=== PATIENT | male | born 1970 | race Caucasian/White ===

== ENCOUNTER → 2023-08-11 | Outpatient (CLI) | payer OTHER, SELFPAY ==
--- NOTE | 2023-08-11 15:11 | MRI_ITS ---
STUDY: MRI BRAIN WITH AND WITHOUT CONTRAST REASON FOR EXAM: Male, 53 years old. IAC LT EAR HEARING LOSS TECHNIQUE: Standardized multiplanar fat and water weighted pulse sequences were obtained. IV Yes YES was administered for the contrast portion of the examination. COMPARISON: None. FINDINGS: Normal size of the ventricles and extra-axial spaces for the patient''s age. Normal white matter tracts of the supratentorial brain. Normal bilateral basal ganglia. Normal thalami. There is no extra-axial fluid accumulation. Normal flow voids within the major intracranial circulation suggesting patency by spin echo criteria. Normal venous enhancement. There is no enhancing intra-axial or extra-axial abnormality. Normal sella turcica, pituitary gland, infundibular stalk, optic chiasm and hypothalamus. Normal tectal plate and pineal gland. Normal midbrain, elan and medulla. Normal cerebellum. Normal basal cisterns. Normal bilateral temporal bones. Normal bilateral internal auditory canals. No demonstrated orbital abnormality, within the constraints of a routine brain study. Mild polypoid mucosal thickening in the left maxillary sinus and more severe complex disease in the left sphenoid sinus. Normal calvarium and skull base. Normal visualized soft tissue structures. Normal visualized upper cervical spine. MRI/Brain W/WO Contrast IMPRESSION: Normal unenhanced and enhanced MRI of the brain . No evidence for acoustic or vestibular schwannoma. Mild left maxillary sinusitis and more severe complex sinus disease in the left sphenoid sinus possibly fungal. Neoplasm not entirely excluded. Clinical correlation recommended Electronically Signed: Dale Cohn MD at 18:05 EST ,
--- OUTSIDE RECORDS SUMMARY | 2023-08-11 15:14 | XMS RPT_ITS | CCD ---
Demographics Address [address] [place] [address] Preferred Language en Marital Status Single Congregational Affiliation Unknown Race White Ethnic Group Not or Lati no Author Name Unknown Address [address] [place] [address] Organization [facility] Care Team Providers Care Russet Repairer Name Role Phone Pcp, No Primary Care Provider Unavailabl e Medications Completed/Discontinued Medications Medication Drug Class(es) Dates Sig (Normalized) Sig (Original) Esomeprazole (1 source) Proton Pump Inhibitor esomeprazo le magnesium (NEXIUM ORAL) Take by mouth. 0 Active Problems Problem Classification Problem Date Documented Da te Episodic/Chronic Nausea and vomiting (1 source) Diarrhea and vomiting; Translations: [Vomiting, unspecified] Episodic Other upper respiratory infections (1 source) Upper respiratory infection; Translations: [Acute upper respiratory infection, unspecified] Episodic Otitis media and related conditions (1 source) Dysfunction of bilateral eustachian tubes; Translations: [Other specified disorders of Eustachian tube, bilateral] Episodic Results Test Name Value Interpretation Reference Range Facil ity Vital Signs Date Time Vital Sign Value Performing Clinician Checo bowens 08-02-2022 10:56-0500 Body temperature 97.5 [degF] Sudhir Mayberry APRN.CNP Work Phone: [facility] 08-02-2022 10:56-0500 Body weight 115.67 kg Sudhir Mayberry APRN.CNP Work Phone: [facility] 08-02-2022 10:56-0500 Diastolic blood pressure 80 mm[Hg] Sudhir Mayberry APRN.CNP Work Phone: [facility] 08-02-2022 10:56-0500 Heart rate 104 /min Sudhir Mayberry APRN.CNP Work Phone: [facility] 08-02-2022 10:56-0500 Respiratory rate 16 /min Sudhir Mayberry APRN.CNP Work Phone: [facility] 08-02-2022 10:56-0500 SaO2% (BldA) [Mass fraction] 96 % Sudhir Mayberry APRN.CNP Work Phone: [facility] 08-02-2022 10:56-0500 Systolic blood pressure 126 mm[Hg] Sudhir Mayberry APRN.CNP Work Phone: [facility] Encounters Encounter Date Encounter Type Care Provider Facility Start: 08-02-2022 End: 08-02-2022 ambulatory Facility:[facility] Start: 08-02-2022 End: 08-02-2022 Patient encounter procedure Sudhir Mayberry APRN.CNP Work Phone: [facility] Plan of Treatment Date Care Activity Detail Author Start: 04-07-2022 Influenza vaccination INFLUENZA (#1) [facility] Start: 08-07-2021 DEPRESSION ASSESSMENT DEPRESSION ASS ESSMENT [facility] Start: 2019 SHINGRIX VACCINE (1 of 2) SHINGRIX V ACCINE (1 of 2) [facility] Start: 2014 COLOGUARD (FIT-DNA) COLOGUARD (FIT-D NA) [facility] Start: 2014 Colonoscopy COLONOSCOPY [facility] Start: 2014 COLORECTAL CANCER SCREENING COLORECTAL CANCER SCREENING [facility] Start: [address] COLONOGRAPHY [facility] Start: 2014 DIABETES SCREEN DIABETES SCREEN [facility] Start: 2014 FECAL OCCULT BLOOD FECAL OCCULT BLOO D [facility] Start: 2014 SIGMOIDOSCOPY SIGMOIDOSCOPY [facility] Start: 2004 LIPID SCREEN LIPID SCREEN [facility] Start: 1988 Urine microalbumin profile DTAP,TDAP ,TD (1 - Tdap) [facility] Start: 1987 HEPATITIS C SCREENING HEPATITIS C SC REENING [facility] Start: 1987 HIV SCREENING HIV SCREENING [facility] Start: 1969 COVID-19 VACCINE (#1) COVID-19 VACCI NE (#1) [facility] Start: 1969 HEPATITIS B (1 of 3 - 3-dose series) HEPATITIS B (1 of 3 - 3-dose series) [facility] Payers Date Payer Category Payer Unknown [id number] 2021 Unknown MMO MMO [employer] [id number] 2021-Present [phone] [address] [place] [address] PPO [id number] Social History Date Type Detail Facility Start: 08-02-2022 Tobacco smoking status NHIS Never smoked tobacco [facility] Work Phone: Start: 08-02-2022 Tobacco use and exposure Smokeless tobacco non-user [facility] Work Phone: Start: 1970 Sex Assigned At Not on file [facility] NEGATED: Highlighted rowStart: NINF History of tobacco use Passive smoker [facility] Work Phone: Progress note 08-02-2022 Note Date & Type Note Facility 08-02-2022 Note HNO ID: [id number] Author: Sudhir Mayberry APRN.[facility] Service: ? Author Type: Nurse Practitioner Type: Progress Notes Filed: 08/02/2022 11:52 AM Note Text: Subjective HPI HPI Pamela Brown is a 52 year old male who presents today for CC of vomiting/diarrhea. This started 1 day ago. Has tried pepto for relief. Symptoms are worsened by nothing. Risk factors others with similar symptoms after eating pizza other day. Denies blood in stool/vomit. Nasal congestion for 2-3 weeks/improving, now having ear fullness/buzzing, decrease in hearing. .Patient presents with: Sinus Problem: sinus pressure, drainage, ear pain x off and on x 2-3 weeks, gi upset diarrhea, vomiting x this am No past medical history on file. No past surgical history on file. ALLERGIES Patient has no known allergies. MEDICATIONS esomeprazole magnesium (NEXIUM ORAL) Take by mouth. No family history on file. Social History Tobacco Use Smoking status: Never Passive exposure: Never Smokeless tobacco: Never ROS Objective Blood pressure 126/80, pulse 104, temperature 36.4 ?C (97.5 ?F), resp. rate 16, weight 115.7 kg (255 lb), SpO2 96 %. Physical Exam Constitutional: General: He is not in acute distress. Appearance: He is not toxic-appearing or diaphoretic. HENT: Head: Normocephalic and atraumatic. Right Ear: Hearing, ear canal and external ear normal. A middle ear effusion (clear) is present. Left Ear: Hearing, ear canal and external ear normal. A middle ear effusion (clear) is present. Nose: Nose normal. Eyes: General: Lids are normal. No scleral icterus. Right eye: No discharge. Left eye: No discharge. Conjunctiva/sclera: Conjunctivae normal. Pupils: Pupils are equal, round, and reactive to light. Neck: Trachea: Trachea normal. Cardiovascular: Rate and Rhythm: Normal rate and regular rhythm. Heart sounds: Normal heart sounds. Pulmonary: Effort: Pulmonary effort is normal. Breath sounds: Normal breath sounds. Abdominal: General: Bowel sounds are normal. Palpations: There is no hepatomegaly or splenomegaly. Tenderness: There is no abdominal tenderness. Musculoskeletal: Cervical back: Normal range of motion and neck supple. Lymphadenopathy: Cervical: No cervical adenopathy. Right cervical: No superficial cervical adenopathy. Left cervical: No superficial cervical adenopathy. Skin: Findings: No rash. Neurological: Mental Status: He is alert and oriented to person, place, and time. ASSESSMENT/PLAN: 1. Vomiting and diarrhea - ICD9: 787.03, 787.91, ICD10: R11.10, R19.7 (primary diagnosis) Viral vs food born illness Push fluids Otc management discussed Urgent f/u for worsening s/s. 2. ETD (Eustachian tube dysfunction), bilateral - ICD9: 381.81, ICD10: H69.83 -use medication as prescribed -follow up if symptoms persist, worsen, change - FLUTICASONE PROPIONATE 50 MCG/ACTUATION NASAL SPRAY,SUSPENSION 3. Protracted URI - ICD9: 465.9, ICD10: J06.9 - Discussed viral etiology and rationale for treatment. - Symptomatic treatment with prn analgesia - Supportive care with fluids and rest - Follow up in 3-5 days if symptoms persist or sooner if worsening of symptoms Sudhir Mayberry APRN.[facility] History of Present illness Narrative 08-02-2022 Sudhir Mayberry APRN.[facility] - 08/02/2022 11:11 AM EST Note Date & Type Note Facility 08-02-2022 History of Presen t illness Narrative Subjective HPI HPI Pamela Brown is a 52 year old male who presents today for CC of vomiting/diarrhea. This started 1 day ago. Has tried pepto for relief. Symptoms are worsened by nothing. Risk factors others with similar symptoms after eating pizza other day. Denies blood in stool/vomit. Nasal congestion for 2-3 weeks/improving, now having ear fullness/buzzing, decrease in hearing. .Patient presents with: Sinus Problem: sinus pressure, drainage, ear pain x off and on x 2-3 weeks, gi upset diarrhea, vomiting x this am No past medical history on file. No past surgical history on file. ALLERGIES Patient has no known allergies. MEDICATIONS esomeprazole magnesium (NEXIUM ORAL) Take by mouth. No family history on file. Social History Tobacco Use Smoking status: Never Passive exposure: Never Smokeless tobacco: Never ROS Objective Blood pressure 126/80, pulse 104, temperature 36.4 C (97.5 F), resp. rate 16, weight 115.7 kg (255 lb), SpO2 96 %. Physical Exam Constitutional: General: He is not in acute distress. Appearance: He is not toxic-appearing or diaphoretic. HENT: Head: Normocephalic and atraumatic. Right Ear: Hearing, ear canal and external ear normal. A middle ear effusion (clear) is present. Left Ear: Hearing, ear canal and external ear normal. A middle ear effusion (clear) is present. Nose: Nose normal. Eyes: General: Lids are normal. No scleral icterus. Right eye: No discharge. Left eye: No discharge. Conjunctiva/sclera: Conjunctivae normal. Pupils: Pupils are equal, round, and reactive to light. Neck: Trachea: Trachea normal. Cardiovascular: Rate and Rhythm: Normal rate and regular rhythm. Heart sounds: Normal heart sounds. Pulmonary: Effort: Pulmonary effort is normal. Breath sounds: Normal breath sounds. Abdominal: General: Bowel sounds are normal. Palpations: There is no hepatomegaly or splenomegaly. Tenderness: There is no abdominal tenderness. Musculoskeletal: Cervical back: Normal range of motion and neck supple. Lymphadenopathy: Cervical: No cervical adenopathy. Right cervical: No superficial cervical adenopathy. Left cervical: No superficial cervical adenopathy. Skin: Findings: No rash. Neurological: Mental Status: He is alert and oriented to person, place, and time. ASSESSMENT/PLAN: 1. Vomiting and diarrhea - ICD9: 787.03, 787.91, ICD10: R11.10, R19.7 (primary diagnosis) Viral vs food born illness Push fluids Otc management discussed Urgent f/u for worsening s/s. 2. ETD (Eustachian tube dysfunction), bilateral - ICD9: 381.81, ICD10: H69.83 -use medication as prescribed -follow up if symptoms persist, worsen, change - FLUTICASONE PROPIONATE 50 MCG/ACTUATION NASAL SPRAY,SUSPENSION 3. Protracted URI - ICD9: 465.9, ICD10: J06.9 - Discussed viral etiology and rationale for treatment. - Symptomatic treatment with prn analgesia - Supportive care with fluids and rest - Follow up in 3-5 days if symptoms persist or sooner if worsening of symptoms Sudhir Mayberry APRN.[facility] documented in this encounter [facility] Evaluation note Note Date & Type Note Facility documented in this encounter [facility] Summary Purpose Family History No Family History Records Found Advance Directives No Advanced Directives Records Found Additional Source Comments (unrecognized sect ion and content) No Status Records Found INFORMATION SOURCE (unrecogn ized section and content) Source Comments (unrecognize d section and content) In the event this informatio n is protected by the Federal Confidentiality of Alcohol and Drug Abuse Patient Records regulations: The Federal rules restrict any use of the information to criminally investigate or prosecute any alcohol or drug abuse patient.[facility] Reason for Visit (unrecogniz ed section and content) Care Teams (unrecognized sec tion and content) FOR RECORDS PERTAINING TO PATIENTS WHO ARE OR HAVE BEEN ENROLLED IN A CHEMICAL DEPENDENCY/SUBSTANCEABUSE PROGRAM, SOME INFORMATION MAY BE OMITTED. This clinical summary was aggregated from multiple sources. Caution should be exercised in using it in the provision of clinical care. This summary normalizes information from multiple sources, and as a consequence, information in this document may materially change the coding, format and clinical context of patient data. In addition, data may be omitted in some cases. CLINICAL DECISIONS SHOULD BE BASED ON THE PRIMARY CLINICAL RECORDS. [facility]. provides no warranty or guarantee of the accuracy or completeness of information in this document.
== END | disposition home or self-care (01) ==
PROVIDERS: PCP Family Medicine; Referring Provider Otolaryngology Otolaryngology/Facial Plastic Surgery; Visit Provider Otolaryngology Otolaryngology/Facial Plastic Surgery
DX: H91.22 Sudden idiopathic hearing loss, left ear (principal)
CPT/HCPCS: 70553; A9575

== ENCOUNTER → 2025-01-15 | Outpatient (CLI) | payer OTHER, SELFPAY ==
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
== END | disposition home or self-care (01) ==
LOC: PSN 13:46
PROVIDERS: PCP Family Medicine; Referring Provider Surgery Plastic and Reconstructive Surgery; Visit Provider Surgery Plastic and Reconstructive Surgery
DX: M79.641 Pain in right hand (principal); M79.642 Pain in left hand
CPT/HCPCS: 95886; 95911